=== PATIENT | male | born 1980 | race Caucasian/White ===

== ENCOUNTER 2021-10-08 18:01 | Emergency (ER) | payer SELFPAY ==
[2021-10-08] MEDS ORDERED: Acetaminophen/HYDROcodone 325-5 MG Tab PO ONE (21:55)
[2021-10-08] MEDS ORDERED: Lidocaine 2% Viscous Solution 15 ML UD PO ONE (21:55)
[2021-10-08] MEDS ORDERED: Benzocaine 20% Topical Spray UD MUCMEM ONE (21:55)
[2021-10-08] MEDS ORDERED: Clindamycin HCl 150 MG Cap PO ONE (21:56)
[2021-10-08] MEDS ORDERED: Amoxicillin/Clavulanate K 875-125 MG Tab PO ONE (22:01)
== END 2021-10-08 22:38 | disposition home or self-care (01) ==
LOC: MW.ED 18:01
DX: K04.7 Periapical abscess without sinus (principal); K02.9 Dental caries, unspecified; K00.7 Teething syndrome
CPT/HCPCS: 99282; A9270; 99283